=== PATIENT | female | born 1980 | race Caucasian/White ===

== ENCOUNTER 2025-05-25 10:01 | Inpatient (IN) | payer OTHER ==
[2025-05-25 10:27] VITALS: BMI 36.0
[2025-05-25] MEDS ORDERED: MAGNESIUM HYDROX 2400MG/30ML ORAL SUSPENSION 30 ML CUP PO PRN (11:06)
[2025-05-25] MEDS ORDERED: POLYETHYLENE GLYCOL (HEALTHYLAX) 3350 17 GM PACKET PO PRN (11:06)
[2025-05-25] MEDS ORDERED: ONDANSETRON *ODT* 4 MG TABLET SL PRN (11:06)
[2025-05-25] MEDS ORDERED: guaiFENesin 600 MG TABLET.ER (FP) PO PRN (11:06)
[2025-05-25] MEDS ORDERED: LOPERAMIDE HCL 2 MG CAPSULE PO PRN (11:06)
[2025-05-25] MEDS ORDERED: DICYCLOMINE HCL 10 MG CAPSULE PO PRN (11:06)
[2025-05-25] MEDS ORDERED: IBUPROFEN 400 MG TABLET (FP) PO PRN (11:06)
[2025-05-25] MEDS ORDERED: BENZONATATE 200 MG CAPSULE PO PRN (11:06)
[2025-05-25] MEDS ORDERED: ACETAMINOPHEN 325 MG TABLET (FP) PO PRN (11:06)
[2025-05-25] MEDS ORDERED: MAG HYDROX/AL HYDROX/SIMETH 30 ML UNIT-DOSE CUP PO PRN (11:06)
[2025-05-25] MEDS ORDERED: BENZOCAINE/MENTHOL (CHLORASEPTIC ) LOZENGE MM PRN (11:06)
[2025-05-25] MEDS ORDERED: BISMUTH SUBSALICYLATE 524 MG/30 ML PO PRN (11:06)
[2025-05-25] MEDS ORDERED: NALOXONE (NARCAN) HCL 4 MG/0.1 ML SPRAY NS PRN (11:06)
[2025-05-25] MEDS: NITROFURANTOIN MONOHYD/M-CRYST 100 MG CAPSULE PO SCH (12:16)
[2025-05-25] MEDS: NALTREXONE HCL 50 MG TABLET PO ONE (12:16)
[2025-05-25 20:09] LABS: EPI CELLS 20 /uL (0-25.1); HYALINE CASTS 1 /uL (0-3.1); URINE APPEARANCE CLOUDY; URINE BACTERIA 1 /uL (0-1359); URINE BILIRUBIN 1+ (NEGATIVE); URINE COLOR ORANGE; URINE GLUCOSE (UA) NEGATIVE (NEGATIVE); URINE KETONE 1+ (NEGATIVE); URINE LEUK ESTERASE 1+ (NEGATIVE); URINE NITRITE NEGATIVE (NEGATIVE); URINE PROTEIN 2+ (NEGATIVE); URINE RBC 16487 /uL (0-23.9); URINE UROBILINOGEN 1.0 mg/dL (0.2-1.0); URINE WBC 35 /uL (0-25.8)
[2025-05-25] MEDS: THIAMINE 100 MG TABLET PO SCH (22:17)
[2025-05-25] MEDS: MELATONIN 5 MG TABLETS PO SCH (22:17)
[2025-05-26] MEDS: hydrOXYzine PAMOATE 25 MG CAPSULE (FP) PO PRN (05:44)
[2025-05-26] MEDS: NALTREXONE HCL 50 MG TABLET PO SCH (10:07)
[2025-05-26] MEDS: PRENATAL VITAMINS W/ FOLIC ACID TABLET (FP) PO SCH (10:07)
[2025-05-26 10:10] LABS: MCHC 31.4 g/dl (32.2-35.5); MEAN CELL VOLUME 100.3 fl (79.4-94.8); MEAN PLT VOLUME 11.5 fl (9.4-12.3); RDW 14.2 % (12.2-17.1)
[2025-05-26 11:14] LABS: GLUCOSE,RANDOM 90.0 mg/dL (74-106)
[2025-05-26 11:15] LABS: CO2 24.0 mmol/L (21-32)
[2025-05-26 11:18] LABS: CREATININE 0.7 mg/dL (0.55-1.3); SGOT/AST 47.0 U/L (15-37)
[2025-05-26 11:19] LABS: TOT PROT 7.3 g/dl (6.4-8.2)
[2025-05-26 11:20] LABS: ALK PHOS 97.0 U/L (45-117); SGPT/ALT 49.0 U/L (13-61)
[2025-05-26] MEDS: GABAPENTIN 300 MG CAPSULE PO SCH (13:31)
[2025-05-26] MEDS ORDERED: GABAPENTIN 100 MG CAPSULE PO SCH (14:00)
[2025-05-26] MEDS: IBUPROFEN 600 MG TABLET (FP) PO PRN (22:41)
[2025-05-27] MEDS: METHOCARBAMOL 500 MG TABLET PO PRN (22:20)
[2025-05-30] MEDS: NICOTINE POLACRILEX 2 MG GUM BUC PRN (10:20)
[2025-05-30 13:20] VITALS: BP 126/96; PULSE 90; RESP 18; TEMP 98.4
== END 2025-05-30 13:33 | disposition home or self-care (01) | DRG 775 ==
LOC: YASAS 10:01 → Y6N 11:40
PROVIDERS: ADMIT Family Medicine; ATTEND Family Medicine Addiction Medicine
PROC: HZ2ZZZZ Detoxification Services for Substance Abuse Treatment (ICD-10-PCS; principal; 2025-05-25)
DX: F10.230 Alcohol dependence with withdrawal, uncomplicated (principal); F17.210 Nicotine dependence, cigarettes, uncomplicated; F19.282 Other psychoactive substance dependence with psychoactive substance-induced sleep disorder; F19.280 Other psychoactive substance dependence with psychoactive substance-induced anxiety disorder; G62.1 Alcoholic polyneuropathy; N39.0 Urinary tract infection, site not specified; Z99.3 Dependence on wheelchair
CPT/HCPCS: 36415; 80053; 80177; 80305; 80307; 81003; 81025; 83036; 85027; 86780; 87086; 87811; 93005; 93010